=== PATIENT | male | born 1970 | race Hispanic/Latino ===

== ENCOUNTER 2017-10-02 07:04 | Outpatient (RCR) | payer OTHER | END 2017-10-27 | LOC: PT 07:04 | PROVIDERS: ATTEND Family Medicine | DX: S16.1XXD Strain of muscle, fascia and tendon at neck level, subsequent encounter (principal); S33.5XXD Sprain of ligaments of lumbar spine, subsequent encounter; S83.502D Sprain of unspecified cruciate ligament of left knee, subsequent encounter; S83.511D Sprain of anterior cruciate ligament of right knee, subsequent encounter | CPT/HCPCS: 97750; G8990; G8991; G8992 ==